=== PATIENT | female | born 1975 | race Asian ===

== ENCOUNTER 2017-07-14 20:44 | Inpatient (IN) | payer BC ==
[~2017-07-14] VITALS: Ht 160 cm; Wt 65.8 kg
[~2017-07-14 20:44] MED LIST: HYDR-1189 PO; HYDR12.55 PO; LOSA100T11 PO; METO25TA6 PO; NOR10 PO
[2017-07-14 20:54] VITALS: BP_SYST 123
--- NOTE | 2017-07-14 20:58 | NUR ---
Patient to ER bed 06 to gown for evaluation. Side rails up. Report given to LADONNA Vargas
--- NOTE | 2017-07-14 21:00 | NUR ---
Patient ambulatory to ED a/o x 4 with c/o generalized weakness x 1 week. Patient recently seen in ED and discharged home with cipro. Reports intermittent fevers at home. Current temp 101.2. Reports persistant cough and loss of appetite. Swollen and palpable right sided axillary lymph node. Skin hot to touch. Denies N/V. -CP. -SOB.
--- NOTE | 2017-07-14 21:03 | NUR ---
ED MD Reyna at bedside for medical evaluation.
[2017-07-14] MEDS ORDERED: NACL 0.9% 1,000 ML IV ONE ×2 (21:15→23:30)
--- NOTE | 2017-07-14 21:20 | NUR ---
#20 gauge angiocath placed to left hand. Use of asceptic technique. Opsite placed over site. Blood return noted. Blood for lab drawn from site. Flushed with 10 cc of normal saline. No evidence of infiltration noted. Patient tolerated well.
[2017-07-14 21:24] LABS: BILIRUBIN,URINE NEGATIVE (NEGATIVE); CLARITY/URINE SL HAZY (CLEAR); COLOR,URINE YELLOW (YELLOW); GLUCOSE,URINE NEGATIVE (NEGATIVE); KETONES,URINE NEGATIVE (NEGATIVE); LEUKOCYTE ESTERASE ,URINE NEGATIVE (NEGATIVE); NITRITE, URINE NEGATIVE (NEGATIVE); PH,URINE 6.5 (5.0-8.0); PROTEIN URINE TRACE (NEGATIVE)
[2017-07-14 21:29] LABS: BASOPHILS % (AUTO) 0.3 % (0.0-2.0); EOSINOPHILS % (AUTO) 0.2 % (0.0-4.0); HEMATOCRIT 27.7 % (36-48); HEMOGLOBIN 9.7 g/dL (12.0-16.0); LYMPHOCYTES # (AUTO) 0.3 K/uL (1.0-5.5); LYMPHOCYTES % (AUTO) 4.6 % (20.5-51.5); MEAN CORPUSCULAR HEMOGLOBIN 29 pg (27-31); MEAN CORPUSCULAR HGB CONC 35 % (32-36); MEAN CORPUSCULAR VOLUME 83 fL (79.0-98.0); MONOCYTES # (AUTO) 0.3 K/uL (0.0-1.0); NEUTROPHILS # (AUTO) 6.9 K/uL (1.8-7.7); NEUTROPHILS % (AUTO) 90.9 % (40.0-70.0); PLATELET COUNT (AUTO) 236 K/uL (130-430); RED BLOOD CELL COUNT(AUTO) 3.34 MIL/uL (4.2-6.2); RED CELL DISTRIBUTION WIDTH 12.9 % (9.0-15.0); WHITE BLOOD COUNT (AUTO) 7.5 K/uL (4.8-10.8)
[2017-07-14 21:35] LABS: BLOOD, URINE TRACE (NEGATIVE)
[2017-07-14 21:43] LABS: CALCIUM 7.8 mg/dL (8.4-11.0); CREATININE 0.81 mg/dL (0.55-1.30); POTASSIUM 3.3 mmol/L (3.5-5.1)
[2017-07-14 21:48] LABS: ALBUMIN 2.6 g/dL (3.4-4.8); TOTAL BILIRUBIN 0.8 mg/dL (0.0-1.0)
--- NOTE | 2017-07-14 21:54 | NUR ---
Patient transported off unit via gurney for CT. Accompanined by radiology staff.
[2017-07-14 21:57] LABS: INR 1.1 (0.8-1.2); PROTHROMBIN TIME 10.7 SECS (9.5-12.5)
[2017-07-14 21:59] LABS: BACTERIA,URINE FEW /HPF (None Seen); MUCUS,URINE None Seen /LPF (None Seen); RBC,URINE 0-3 /HPF (0-3)
--- NOTE | 2017-07-14 22:12 | NUR ---
Patient returned to unit.
--- NOTE | 2017-07-14 23:54 | NUR ---
ED MD Reyna at bedside reassessing patient.
--- NOTE | 2017-07-15 | NUR ---
End of life care decisions discussed with Patient by Dr. Reyna. Opportunity for questions and concerns addressed. Patient's code status is Full Code paperwork completed and placed in chart.
--- NOTE | 2017-07-15 | NUR ---
Medication reconciliation completed with information provided by patient. Any prior medication reconciliation on file was reviewed and corrected.
[2017-07-15] MEDS ORDERED: PIPERACILLIN/TAZO 3.375 GM in NS 50 ML IV ONE (00:15)
--- NOTE | 2017-07-15 00:22 | NUR ---
Patient will be admitted to care of Dr. Candelario. Admitted to Telemetry unit. Will go to room 135. Belongings list completed. Summary report printed. Report will be given at bedside. Transfer to telemetry via ACLS protocol. Licensed nurse present. IV present no signs or symptoms of infiltration.
--- NOTE | 2017-07-15 00:34 | NUR ---
ADMISSION: The patient, ISIDRO RAMOS, 41 y/o, F admitted by , dr christianson for sepsis , came to 135 , after admission will transfer to 100 B . Addendum: 07/15/17 at 0039 by Dustin Marroquin RN CORRECTION - 100 A BED
[2017-07-15 00:45] VITALS: BP_SYST 136
[2017-07-15] MEDS ORDERED: COMMUNICATION ORDER XX ONE (00:45)
[2017-07-15] MEDS ORDERED: PIPERACILLIN/TAZOBACTAM 3.375 GM/VIAL (ZOSYN) IV ONE ×2 (01:04→06:02)
--- NOTE | 2017-07-15 01:15 | NUR ---
ADMISSION NOTE RECEIVED PATIENT ON BED VIA GURNEY, TAKEN REPORT FROM ADMIT NURSE, PATIENT AWAKE AND ALERT, A/OX4 BREATHING EVEN AND UNLABORED, NO SOB NOTED, PATIENT'S VITALS TAKEN AND RECORDED, STABLE, NO FEVER NOTED. PATIENT STATED THAT SHE HASN'T BEEN GETTING BETTER AND NEEDED HOSPITAL ATTENTION, PATIENT STATED THAT SHE HAS A LUMP AT THE RIGHT SIDE, OF THE UPPER CHEST NEAR THE ARMPIT, NONTENDER, NO SWELLING, NO PAIN NOTED ON THE AREA. PATIENT WITH RASH-LIKE CHARACTERISTICS ON THE UPPER TORSO, PATIENT STATED SHE HAS NO ALLERGIES, PATIENT ALSO STATED "THE RASH LIKE PURPLE COLOR IN MY SKIN IS NORMAL WHEN I AM COLD, MOST OF MY FAMILY HAVE THIS TOO" WILL CONTINUE TO MONITOR FOR SUDHA UNTOWARD S/SX NOTED. PATIENT ORIENTED ON THE FACILITY, PLAN OF CARE AND STATED UNDERSTANDING SAFETY AND COMFORT MAINTAINED, WILL CONTINUE TO MONITOR CALL LIGHT WITHIN REACH.
--- NOTE | 2017-07-15 02:03 | NUR ---
RN ROUNDS PATIENT ON BED SLEEPING AND RESTING, ON STABLE CONDITION, BREATHING EVEN AND UNLABORED, MAINTAINED POSITION OF COMFORT AND SAFETY, ON STABLE CONDITION CALL LIGHT WITHIN REACH.
--- NOTE | 2017-07-15 04:39 | NUR ---
INCREASED TEMPERATURE PATIENT WITH INCREASED TEMPERATURE OF 100.2, OFFERED COOLING MEASURES, PATIENT REFUSED, OFFERED TEPID SPONGE BATH, PATIENT REFUSED AND STATED "TEMPERATURE WILL GO DOWN SOON" ENCOURAGED INCREASED FLUID INTAKE, GIVEN EDUCATION AND PATIENT STATED UNDERSTANDING.
[2017-07-15] MEDS ORDERED: cloNIDine HCL 0.1 MG TABLET PO PRN (05:15)
[2017-07-15] MEDS ORDERED: ENALAPRILAT DIHYDRATE 1.25 MG/ML VIAL IVP PRN (05:15)
[2017-07-15] MEDS ORDERED: hydrALAZINE HCL 20 MG/ML VIAL IVP PRN (05:15)
--- NOTE | 2017-07-15 05:15 | NUR ---
TEMPERATURE RECHECKED PATIENT WITH TEMP OF 100.3, REFUSED COOLING MEASURES, EDUCATED PATIENT WILL CONTINUE TO MONITOR
[2017-07-15] MEDS: PIPERACILLIN/TAZO 3.375/DEX-IS 50 ML IV SCH ×4 (06:00→23:40)
[2017-07-15] MEDS: NACL 0.9% 1,000 ML IV SCH ×2 (06:04→21:25)
--- NOTE | 2017-07-15 06:54 | NUR ---
CLOSING NOTES PATIENT SLEEPING AND RESTING WITH TEMP OF 100.1, ENCOURAGED INCREASED FLUID INTAKE TOLERATED, REFUSED COOLING MEASURES AND GIVEN EDUCATION, ALL DUE MEDICATION GIVEN AND TOLERATED WELL NO PAIN NOTED, MAINTAINED SAFETY PRECAUTION, POSITION OF COMFORT, WILL CONTINUE TO MONITOR CALL LIGHT WITHIN REACH
[2017-07-15 08:00] VITALS: BP_SYST 126
--- NOTE | 2017-07-15 08:00 | NUR ---
initial notes rec patient asleep but arousable to stimuli. ivf infusing well on the l hand. no infiltration noted. denies any pain and patient is afebrile. resp easy and unlabored. no acute ditress noted. bed in low positon and side rails up and locked. instructed to call nurse when needing assistance to the br. fall safety /precaution instructed. will continue to monitor patient.
[2017-07-15] MEDS ORDERED: MIDAZOLAM HCL 5 MG/5 ML VIAL IVP ONE (08:45)
[2017-07-15] MEDS ORDERED: LR 1,000 ML IV.SOLN IV ONE (08:45)
[2017-07-15] MEDS ORDERED: fentaNYL CITRATE/PF 100 MCG/2 ML AMP IVP ONE (08:45)
[2017-07-15] MEDS ORDERED: NS 1000 ML BAG IV ONE (08:45)
[2017-07-15] MEDS ORDERED: BUPIVACAINE /EPINEPHRINE/PF 0.5% 30 ML VIAL INJ ONE (08:45)
[2017-07-15] MEDS ORDERED: SEVOFLURANE 15 MIN GAS INH ONE (08:45)
[2017-07-15] MEDS ORDERED: PROPOFOL 200MG/ 20ML VIAL (DIPRIVAN) IV ONE (08:45)
[2017-07-15] MEDS ORDERED: NS IRRIG SOLN 1000 ML IR ONE (08:45)
--- NOTE | 2017-07-15 10:00 | NUR ---
rounds continue to sleep soundly. no c/o pain offered. no acute distress noted.
--- NOTE | 2017-07-15 11:08 | NUR ---
CONSULT ID FEVERS DR BOLAND [id number] S/W [facility] OFFICE @ [id number]
[2017-07-15 11:41] VITALS: BP_SYST 108
--- NOTE | 2017-07-15 12:48 | NUR ---
rounds due med given as ordered.no sob noted.
--- NOTE | 2017-07-15 14:00 | NUR ---
rounds asleep when rounds made but arousable and requested to be assisted to the br imer well. no acute distress noted.
--- NOTE | 2017-07-15 16:00 | NUR ---
rounds assisted to the br and with min assists and imer well. no sob noted.
[2017-07-15 17:05] VITALS: BP_SYST 102
[2017-07-15] MEDS: ACETAMINOPHEN 325 MG TABLET PO PRN ×2 (17:18→23:39)
--- NOTE | 2017-07-15 18:40 | NUR ---
closing notes seen by dr christianson and dr singh and with orders. dr ordonez was called for the consult and with orders as well. will endorsed to next nurse re consent and npo as per dr ordonez.
--- NOTE | 2017-07-15 18:44 | NUR ---
CONSULT CONSULT CALLED FOR BRIDGET @ 1018 I SPOKE WITH MANJEET GILL CALLED BACK @ [phone]
--- NOTE | 2017-07-15 19:45 | NUR ---
INITIAL NOTES RECEIVED PATIENT ON BED AWAKE AND RESTING, WITH FAMILY AT THE BEDSIDE, BREATHING EVEN AND UNLABORED, NO SOB NOTED, MAINTAINED POSITION OF COMFORT MAINTAINED SAFETY PRECAUTIONS. PATIENT WITH IV ON THE LEFT HAND INFUSING WELL. NO FEVER NOTED, NO PAIN NOTED, PATIENT ON STABLE CONDITION, WILL CONTINUE TO MONITOR CALL LIGHT WITHIN REACH.
[2017-07-15 20:00] VITALS: BP_SYST 105
[2017-07-15] MEDS: DOXYCYCLINE HYCLATE 100 MG CAPSULE PO SCH (21:25)
--- NOTE | 2017-07-15 22:00 | NUR ---
RN ROUNDS PATIENT ON BED SLEEPING AND RESTING BREATHING EVEN AND UNLABORED, MAINTAINED POSITION OF COMFORT AND SAFETY, ON STABLE CONDITION, WILL CONTINUE TO MONITOR CALL LIGHT WITHIN REACH.
--- NOTE | 2017-07-15 23:40 | NUR ---
TEMPERATURE PATIENT WITH TEMP OF 100.3 TYLENOL GIVEN
[2017-07-16] VITALS (7 sets, daily range): BP systolic 95–140
--- NOTE | 2017-07-16 00:15 | NUR ---
RN ROUNDS PATIENT ON BED SLEEPING AND RESTING, ON STABLE CONDITION, SAFETY PRECAUTION MAINTAINED, PATIENT MAINTAINED ON NPO, EDUCATION GIVEN STATED UNDERSTANDING WILL CONTINUE TO MONITOR CALL LIGHT WITHIN REACH.
--- NOTE | 2017-07-16 00:40 | NUR ---
TEMPERATURE RECHECKED PATIENT WITH TEMP OF 97.9 SLEEPING AND RESTING COMFORTABLY
--- NOTE | 2017-07-16 02:00 | NUR ---
CAT SCRATCH ANTIBODY CLARIFIED WITH LAB ABOUT THE STATUS OF THE TEST BECAUSE IT WAS CANCELLED. THEY STATED THAT THE CLS [facility] CANCELLED IT BECAUSE THE ORDER WAS NOT CLEAR AND SAYS ON THE COMMENT "TEST REORDERED CORRECTLY" AND STATED THAT MD NEEDS TO REORDER THE TEST SPECIFICALLY.
--- NOTE | 2017-07-16 02:19 | NUR ---
RN ROUNDS PATIENT ON BED SLEEPING AND RESTING BREATHING EVEN AND UNLABORED, NO SOB NOTED, ON STABLE CONDITION, WILL CONTINUE TO MONITOR CALL LIGHT WITHIN REACH.
--- NOTE | 2017-07-16 04:52 | NUR ---
RN ROUNDS PATIENT ON BED SLEEPING AND RESTING BREATHING EVEN AND UNLABORED NO SOB NOTED MAINTAINED POSITION OF COMFORT AND SAFETY, PATIENT MAINTAINED ON NPO WILL CONTINUE TO MONITOR CALL LIGHT WITHIN REACH.
[2017-07-16] MEDS: PIPERACILLIN/TAZO 3.375/DEX-IS 50 ML IV SCH ×4 (05:29→23:36)
[2017-07-16] MEDS: ACETAMINOPHEN 325 MG TABLET PO PRN ×4 (05:35→23:37)
--- NOTE | 2017-07-16 06:47 | NUR ---
CLOSING NOTES PATIENT ON BED SLEEPING AND RESTING PATIENT STATED THE DISCOMFORT AND CHILLING IS OK AND CONTROLLED, TYLENOL WAS HELPFUL. BREATHING EVEN AND UNLABORED NO SOB NOTED, MAINTAINED POSITION OF COMFORT AND SAFETY, IVF INFUSING WELL CLEAN DRY INTACT. NO PAIN NOTED. OFFERED THE PATIENT TO HAVE CHG BATH, STATED THAT SHE WANTS IT LATER BECAUSE SHE MIGHT STILL FEEL THE CHILLS. WILL GIVE REPORT TO AM NURSE PATIENT KEPT NPO, WILL CONTINUE TO MONITOR CALL LIGHT WITHIN REACH
--- NOTE | 2017-07-16 07:30 | NUR ---
Initial notes: Patient on bed resting. Awake, alert and oriented. Stable. Discussed plan of care. Safety measures in placed. Call light within reach. Report received from bedside.
--- NOTE | 2017-07-16 08:45 | NUR ---
Transfer to O.R.: patient transferred to O.R. for procedure.
[2017-07-16] MEDS ORDERED: ONDANSETRON HCL 4 MG/2 ML VIAL IVP PRN ×2 (09:30→13:30)
[2017-07-16] MEDS ORDERED: fentaNYL CITRATE/PF 100 MCG/2 ML AMP IVP PRN ×2 (09:30)
--- NOTE | 2017-07-16 10:15 | NUR ---
patient back in her room Addendum: 07/16/17 at 1113 by Gracy Marshall RN patient awake, alert and oriented. Dressing at the R armpit dry and intact.
--- NOTE | 2017-07-16 11:13 | NUR ---
rounds: patient resting. no distress noted.
[2017-07-16] MEDS: DOXYCYCLINE HYCLATE 100 MG CAPSULE PO SCH ×2 (11:20→21:36)
--- NOTE | 2017-07-16 12:30 | NUR ---
Vomiting: Patient vomited with the jello she ate. Zofran given thru ivp.
[2017-07-16] MEDS ORDERED: DOXY100T2 PO (13:22)
--- NOTE | 2017-07-16 13:58 | NUR ---
Equal Opportunity Representative DCP faxed pt's discharge home if okay with Dr. Villanueva order to HCP CM Sisi. DCP received fax confirmation.
--- NOTE | 2017-07-16 14:52 | NUR ---
Conversation with Dr. Matson: Informed Dr. Matson patient still having a fever, on and off and already taking Tylenol. Patient also verbalized "she feels so weak." Dr. Matson did not give clearance to discharge the patient and with new orders.
[2017-07-16] MEDS: NACL 0.9% 1,000 ML IV SCH (15:38)
[2017-07-16 16:35] LABS: BASOPHILS % (AUTO) 0.2 % (0.0-2.0); HEMATOCRIT 26.1 % (36-48); HEMOGLOBIN 8.7 g/dL (12.0-16.0); LYMPHOCYTES # (AUTO) 0.3 K/uL (1.0-5.5); LYMPHOCYTES % (AUTO) 2.6 % (20.5-51.5); MEAN CORPUSCULAR HEMOGLOBIN 27 pg (27-31); MEAN CORPUSCULAR HGB CONC 33 % (32-36); MEAN CORPUSCULAR VOLUME 82 fL (79.0-98.0); MONOCYTES # (AUTO) 0.1 K/uL (0.0-1.0); MONOCYTES % (AUTO) 0.8 % (1.7-9.3); NEUTROPHILS # (AUTO) 9.7 K/uL (1.8-7.7); NEUTROPHILS % (AUTO) 96.4 % (40.0-70.0); PLATELET COUNT (AUTO) 225 K/uL (130-430); RED BLOOD CELL COUNT(AUTO) 3.17 MIL/uL (4.2-6.2); RED CELL DISTRIBUTION WIDTH 13.5 % (9.0-15.0); WHITE BLOOD COUNT (AUTO) 10.1 K/uL (4.8-10.8)
[2017-07-16 16:49] LABS: CALCIUM 7.1 mg/dL (8.4-11.0); CREATININE 0.69 mg/dL (0.55-1.30); POTASSIUM 3.2 mmol/L (3.5-5.1); TOTAL BILIRUBIN 0.8 mg/dL (0.0-1.0)
--- NOTE | 2017-07-16 16:51 | NUR ---
rounds: patient resting on bed. no vomiting episode.
[2017-07-16] MEDS: POTASSIUM CHLORIDE 20 MEQ/PKT PACKET PO SCH ×2 (18:05→21:36)
--- NOTE | 2017-07-16 18:41 | NUR ---
Closing notes: Patient on bed resting. Stable. Needs attended. Safety measures in placed. Call light within reach. Report will be given to shift commander.
--- NOTE | 2017-07-16 19:10 | NUR ---
OPENING NOTE Patient resting on the bed. No acute distress. Denied of pain at this time. AAO x 4. Skin warm and dry to touch. IV intact to left hand, no redness, no swelling, no drainage. On NS at 70ml/hr, infusing well. Discussed the safety issue, use call light when need help, and plan of care, verbally understanding. Safety measure maintained. Bed locked in low position, side rails up, bed alarm on. Call light within reached. Will continue to monitor.
--- NOTE | 2017-07-16 21:45 | NUR ---
SECOND DOSE OF KCL 40MG PO GIVEN, ORDERED POTASSIUM AND MAGNESIUM LEVEL ONE HOUR AFTER PER MD WRITTEN ORDER.
[2017-07-16 23:10] LABS: POTASSIUM 4.1 mmol/L (3.5-5.1)
--- NOTE | 2017-07-16 23:19 | NUR ---
ROUND Patient resting on the bed with eyes closed. No acute distress. Respiration even and unlabored. IV intact, IVF infusing well. Safety measure maintained. Bed locked in low position, side rails up, bed alarm on. Call light within reached. Continue to monitor.
--- NOTE | 2017-07-16 23:37 | NUR ---
ALUR=447.8 Tylenol 650mg PO given as ordered for afix=375.8. No acute distress. Safety measure maintained. Bed locked in low position, side rails up, bed alarm on. Call light within reached. Continue to monitor.
[2017-07-17 00:30] VITALS: BP_SYST 111
--- NOTE | 2017-07-17 00:31 | NUR ---
RECHECKED TEMP=97.7
--- NOTE | 2017-07-17 02:10 | NUR ---
ROUND Patient resting on the bed with eyes closed. No acute distress. IV intact, IVF infusing well. Safety measure maintained. Bed locked in low position, side rails up, bed alarm on. Call light within reached. Continue to monitor.
--- NOTE | 2017-07-17 04:30 | NUR ---
ROUND Patient resting on the bed with eyes closed. No acute distress. IV intact, IVF infusing well. Safety measure maintained. Call light within reached. Bed locked in low position, side rails up, bed alarm on. Call light within reached. Continue to monitor.
[2017-07-17] MEDS: PIPERACILLIN/TAZO 3.375/DEX-IS 50 ML IV SCH ×4 (06:14→23:32)
[2017-07-17] MEDS: NACL 0.9% 1,000 ML IV SCH ×2 (06:15→23:32)
--- NOTE | 2017-07-17 06:42 | NUR ---
CLOSING NOTE Patient resting on the bed. No acute distress. No c/o pain. Temp=98.8 at this time. Skin warm and dry to touch. IV intact to left hand, no redness, no swelling, no drainage. IVF infusing well. All needs met. Hourly rounding during shift. Safety measure maintained. Bed locked in low position, side rails up, bed alarm on. Call light within reached. Will endorse to morning shift nurse.
--- NOTE | 2017-07-17 08:00 | NUR ---
OPENING NOTE: MORNING REPORT WAS TAKEN FROM PAINTING AND COATING WORKER NURSE. PATIENT WAS ASLEEP WITH NO SIGNS OF DISTRESS. VITALS AND MORNING ASSESSMENT WAS DONE. PATIENT HAD A SLIGHTLY ELEVATED TEMP OF 99.8. TOOK OFF COVERS AND WAS GOING TO PUT ICE UNDER ARM PITS BUT PATIENT REFUSED. IV FLUIDS ARE INFUSING. PATIENT'S BANDAGE UNDER ARM PIT IS DRY AND INTACT. PATIENT NOT COMPLAINING OF PAIN OR SHORTNESS OF BREATH. BED ALARM IS ON AND CALL LIGHT IS IN REACH. WILL CONTINUE TO MONITOR.
[2017-07-17 08:06] VITALS: BP_SYST 115
[2017-07-17] MEDS: DOXYCYCLINE HYCLATE 100 MG CAPSULE PO SCH ×2 (08:51→20:07)
--- NOTE | 2017-07-17 08:52 | NUR ---
NOTE: GAVE PATIENT MORNING MEDICATION. EDUCATED PATIENT ON SIDE EFFECTS. WILL CONTINUE TO MONITOR.
--- NOTE | 2017-07-17 11:34 | NUR ---
Dietitian Recommendations * Recommend regular diet LP, RD Please refer to Nutrition Assessment for details.
--- NOTE | 2017-07-17 12:10 | NUR ---
NOTE: PATIENT WAS SITTING EATING LUNCH. HUNG PATIENT'S ANTIBIOTICS. EDUCATED PATIENT ON SIDE EFFECTS. PATIENT NOT COMPLAINING OF ANY DISTRESS. HELPED PATIENT TO RESTROOM. PATIENT STATES SHE HAS SOME DIARRHEA. HELPED PATIENT BACK INTO BED. BED ALARM ON AND CALL LIGHT IN REACH. WILL CONTINUE TO MONITOR.
[2017-07-17 12:42] VITALS: BP_SYST 102
[2017-07-17 16:26] VITALS: BP_SYST 112; BP_SYST 92
--- NOTE | 2017-07-17 18:25 | NUR ---
CLOSING NOTE: PATIENT IS LAYING IN BED WITH NO SIGNS OF DISTRESS. PATIENT IS NOT COMPLAINING OF PAIN OR SHORTNESS OF BREATH. PATIENT IS ON ROOM AIR. IV FLUIDS ARE INFUSING. PATIENT HAS BEEN RUNNING A TEMP AROUND 99 THROUGH OUT SHIFT. PATIENT ONLY HAD SHEET ON. PATIENT DID NOT WANT ICE UNDER ARMPITS. ICE PACKS AT BEDSIDE. PATIENT HAS NO FURTHER REQUEST AT MOMENT. BED ALARM IS ON AND CALL LIGHT IS IN REACH. WILL GIVE REPORT TO MIXER CRANE OPERATOR NURSE.
--- NOTE | 2017-07-17 19:53 | NUR ---
OPENING NOTES PATIENT IN BED RESTING WITH FAMILY AT BEDSIDE. NO ACUTE DISTRESS OR SOB NOTED. BREATHING EVEN AND UNLABORED. IVF RUNNING ORDERED. NO REDNESS OR INFILTRATION NOTED AT IV SITE. PATIENT DENIES ANY PAIN AT THIS TIME. ALL NEEDS MET AT THIS TIME. BED IN LOWEST POSITION AND BED ALARM ON AND CALL LIGHT WITH PATIENT.
--- NOTE | 2017-07-17 22:14 | NUR ---
ROUNDS PATIENT IN BED RESTING. NO ACUTE DISTRESS OR SOB NOTED AT THIS TIME. PATIENT DENIES ANY PAIN. BREATHING EVEN AND UNLABORED. AFEBRILE. ALL NEEDS MET. BED IN LOWEST POSITION WITH BED ALARM ON AND CALL LIGHT WITH PATIENT.
--- NOTE | 2017-07-17 23:35 | NUR ---
ANTIBIOTIC/ AFEBRILE ADMINISTERED ANTIBIOTIC ORDERED. ANGIO CATH PATENT. PATIENT'S TEMP 99.1. PATIENT DENIES ANY PAIN. BREATHING EVEN AND UNLABORED. ALL NEEDS MET. BED IN LOWEST POSITION WITH BED ALARM ON AND CALL LIGHT WITH PATIENT.
[2017-07-18 00:36] VITALS: BP_SYST 105
--- NOTE | 2017-07-18 02:02 | NUR ---
ROUNDS PATIENT IN BED SLEEPING. NO ACUTE DISTRESS OR SOB NOTED. BREATHING EVEN AND UNLABORED. IVF RUNNING ORDERED. ALL NEEDS MET. BED IN LOWEST POSITION WITH BED ALARM ON AND CALL LIGHT WITH PATIENT.
[2017-07-18] MEDS: NACL 0.9% 1,000 ML IV SCH ×2 (04:45→18:06)
[2017-07-18] MEDS: PIPERACILLIN/TAZO 3.375/DEX-IS 50 ML IV SCH ×4 (05:29→23:18)
--- NOTE | 2017-07-18 06:18 | NUR ---
CLOSING NOTES PATIENT IN BED SLEEPING. NO ACUTE DISTRESS OR SOB NOTED. BREATHING EVEN AND UNLABORED. ALL NEEDS MET. HOURLY AND PRN ROUNDING DINE THROUGHOUT SHIFT. WILL ENDORSE TO DAY SHIFT NURSE PATIENT'S PLAN OF CARE.
--- NOTE | 2017-07-18 07:15 | NUR ---
Opening Note: Patient laying in bed resting. No fever noted. Breathing is even and unlabored with no distress noted. Patient denies pain and discomfort. IV patent and intact running IV fluids per MD order. Bed in lowest position, wheels locked, side rails x3 and call light within reach. No current needs. Will continue to monitor throughput shift.
[2017-07-18 08:09] VITALS: BP_SYST 108
[2017-07-18] MEDS: DOXYCYCLINE HYCLATE 100 MG CAPSULE PO SCH ×2 (08:51→20:19)
--- NOTE | 2017-07-18 10:00 | NUR ---
Rounding: Patient laying in bed asleep.
[2017-07-18] MEDS: ACETAMINOPHEN 325 MG TABLET PO PRN ×2 (11:11→20:20)
--- NOTE | 2017-07-18 12:11 | NUR ---
Rounding: Patient laying in bed resting. No distress noted. Morning medications tolerated well. Patient denies pain. Will continue to monitor.
[2017-07-18 12:30] VITALS: BP_SYST 95
--- NOTE | 2017-07-18 13:58 | NUR ---
Rounding: Patient laying in bed resting. New IV fluid bag started. No distress noted. Will continue to monitor.
--- NOTE | 2017-07-18 16:07 | NUR ---
Rounding: Patient laying in bed resting. Patient denies pain and discomfort. Breathing is even and unlabored with no distress noted. Medications tolerated well. No current needs. Will continue to monitor.
[2017-07-18 16:16] VITALS: BP_SYST 98
--- NOTE | 2017-07-18 18:19 | NUR ---
Closing Note: Patient laying in bed resting. at bedside. No fever noted throughout shift. Breathing is even and unlabored with no distress noted. Patient denies pain and discomfort. IV patent and intact running IV fluids per MD order. Bed in lowest position, wheels locked, side rails x3 and call light within reach. All needs met. Will endorse plan of care to NOC, nurse.
--- NOTE | 2017-07-18 19:30 | NUR ---
INITIAL NOTES RECEIVED HANDOFF REPORT FROM OFFGOING NURSE AT THE BEDSIDE. PATIENTS SPOUSE IS AT THE BEDSIDE. PATIENT IS AWAKE AND ALERT, RESTING COMFORTABLY IN BED. NO SOB, NO ACUTE DISTRESS, NO COMPLAINTS OF PAIN. BED IS LOCKED, IN THE LOWEST POSITION, 2X SIDE RAILS UP, BED ALARM ON. CALL LIGHT IS WITHIN REACH. ENCOURAGED PATIENT TO CALL. WILL CONTINUE WITH PLAN OF CARE.
[2017-07-18 20:00] VITALS: BP_SYST 111
--- NOTE | 2017-07-18 20:20 | NUR ---
PATIENT IS COMPLAINING OF PAIN IN THE RIGHT UPPER CHEST, WHERE THE BIOPSY WAS DONE. PROVIDED TYLENOL PRN PER MD ORDER, SEE EMAR FOR DETAILS.
--- NOTE | 2017-07-18 21:30 | NUR ---
PATIENT IS COMPLAINING OF NAUSEA. STATED SHE NEVER FELT THIS SYMPTOM BEFORE. KODY PROVIDED PRN PER MD ORDER, SEE EMAR FOR DETAILS. ALSO PROVIDED BASIN IN CASE THE PATIENT NEEDS TO VOMIT. EDUCATED PATIENT TO KEEP HOB ELEVATED AND TO TURN HEAD TO THE SIDE TO PREVENT ASPIRATION IN THE EVENT THAT SHE DOES VOMIT. PATIENT VERBALIZES UNDERSTANDING.
[2017-07-19 00:20] VITALS: BP_SYST 100
--- NOTE | 2017-07-19 00:30 | NUR ---
PATIENT IS SLEEPING, RESTING COMFORTABLY IN BED. NO SOB, NO ACUTE DISTRESS, NO SIGNS OF PAIN OR FACIAL GRIMACING. BREATHING EVEN AND UNLABORED WITH VISIBLE CHEST RISE AND FALL SEEN. BED IS LOCKED, IN THE LOWEST POSITION, 2X SIDE RAILS UP, BED ALARM ON. CALL LIGHT WITHIN REACH.
--- NOTE | 2017-07-19 03:06 | NUR ---
PATIENT IS SLEEPING, RESTING COMFORTABLY IN BED. NO SOB, NO ACUTE DISTRESS, NO SIGNS OF PAIN OR FACIAL GRIMACING. BREATHING EVEN AND UNLABORED WITH VISIBLE CHEST RISE AND FALL NOTED. BED IS LOCKED, IN THE LOWEST POSITION, 2X SIDE RAILS UP, BED ALARM ON. CALL LIGHT WITHIN REACH.
[2017-07-19] MEDS: NACL 0.9% 1,000 ML IV SCH (05:19)
[2017-07-19] MEDS: PIPERACILLIN/TAZO 3.375/DEX-IS 50 ML IV SCH ×2 (05:20→11:06)
--- NOTE | 2017-07-19 05:45 | NUR ---
PATIENT IS ASLEEP. RESTING IN BED. VISIBLE CHEST RISE AND FALL SEEN. NO SOB, NO ACUTE DISTRESS, NO SIGNS OF PAIN OR FACIAL GRIMACING. IV SITE INTACT, CURRENTLY INFUSING ANTIBIOTICS AT ORDERED RATE, SEE EMAR. CALL LIGHT WITHIN REACH.
--- NOTE | 2017-07-19 07:29 | NUR ---
Opening Note: Patient laying in bed resting. Breathing is even and unlabored with no distress noted. Patient denies pain and discomfort. IV patent and intact running IV fluids per MD order. Bed in lowest position, wheels locked, side rails x3 and call light within reach. No current needs. Will continue to monitor.
--- NOTE | 2017-07-19 07:32 | NUR ---
CLOSING NOTES HANDOFF REPORT GIVEN TO ONCOMING NURSE AT THE BEDSIDE. PATIENT IS SLEEPING, RESTING IN BED. VISIBLE CHEST RISE AND FALL NOTED, WITH NO SOB, NO ACUTE DISTRESS, NO SIGNS OF PAIN OR FACIAL GRIMACING. IV SITE INTACT, CURRENTLY INFUSING FLUIDS AT THE ORDERED RATE, SEE EMAR. BED IS LOCKED, IN THE LOWEST POSITION, 2X SIDE RAILS UP, BED ALARM ON. CALL LIGHT WITHIN REACH. FALL AND SAFETY PRECAUTIONS MAINTAINED. ALL NEEDS HAVE BEEN MET DURING THIS SHIFT.
[2017-07-19 08:00] VITALS: BP_SYST 100
[2017-07-19] MEDS: DOXYCYCLINE HYCLATE 100 MG CAPSULE PO SCH (08:24)
--- NOTE | 2017-07-19 10:00 | NUR ---
Rounding: Patient laying in bed asleep.
[2017-07-19 11:12] VITALS: BP_SYST 97
--- NOTE | 2017-07-19 11:55 | NUR ---
Rounding: Patient laying in bed resting. Morning medications tolerated well. Patient denies pain and discomfort. NO fever noted. No current needs. Will continue to monitor.
--- NOTE | 2017-07-19 12:14 | NUR ---
DC planning: Faxed dc orders to HCP fax#[phone] f/u with Dr. Garcia next week to get results of culture and PCP in two weeks to evaluation the wound.
--- NOTE | 2017-07-19 14:00 | NUR ---
Rounding: Patient laying in bed resting. Waiting for to be picked up. Will continue to monitor.
[2017-07-19 14:30] VITALS: BP_SYST 103
--- NOTE | 2017-07-19 15:30 | NUR ---
D/C Patient Patient given medication reconciliation form and D/C instructions. Exit Care provided. Patient verbalized understanding. MD discussed with patient the results and treatment provided. Ambulatory with steady gait for discharge to home. Patient in stable condition, ID band removed. IV catheter removed, intact and dressing applied, no active bleeding. Rx of meds given. Patient educated on pain management. All belongings sent with patient.
--- NOTE | 2017-07-21 11:10 | NUR ---
Incident Response Specialist Note Patient called requesting information on disability ([phone]). ARTIFICIAL LOG MACHINE OPERATOR discussed with patient. Patient will go on line, [email or web address], and begin the process. Discussed that PCP usually completes the physician portion of the form. Patient plans to ask Dr Recinos.
== END 2017-07-19 15:30 | disposition home or self-care (01) | DRG 854 ==
LOC: SED 20:44 → STU 07-15 00:13 → SMU 07-16 16:28
PROVIDERS: ADMIT Internal Medicine Hospice and Palliative Medicine; ATTEND Internal Medicine Hospice and Palliative Medicine
PROC: 07B50ZX Excision of Right Axillary Lymphatic, Open Approach, Diagnostic (ICD-10-PCS; principal; 2017-07-16 09:00)
DX: A41.9 Sepsis, unspecified organism (principal); N39.0 Urinary tract infection, site not specified; N13.2 Hydronephrosis with renal and ureteral calculous obstruction; D36.0 Benign neoplasm of lymph nodes; R59.1 Generalized enlarged lymph nodes; I10 Essential (primary) hypertension; Z87.440 Personal history of urinary (tract) infections; Z79.899 Other long term (current) drug therapy; Z90.710 Acquired absence of both cervix and uterus
CPT/HCPCS: 36415; 71250-TC; 80053; 81000-TC; 82164; 83605; 83735-TC; 84132-TC; 84484; 85025; 85610-TC; 85651-TC; 85730-TC; 86038; 86308-TC; 86480; 86635; 87040-TC; 87070-TC; 87075-TC; 87081; 87086; 87101; 87116; 87899; 88189; 88307; 88312; 93005; 96360; 96361; 99285; J2250; J2405; J2543; J2704; J3010; J3490; J7030; J7120